=== PATIENT | male | born 1960 | race Two or more races ===

== ENCOUNTER 2018-12-07 07:21 | Emergency (ER) | payer MEDICAID, SELFPAY ==
[~2018-12-07] VITALS: Ht 180.3 cm; Wt 104.3 kg
[~2018-12-07 07:21] MED LIST: KALETRA 200-501 EAC1 ORAL
[2018-12-07] MEDS ORDERED: hiv med ORAL (07:29)
[2018-12-07 07:30] VITALS: BP 178/105
--- NOTE | 2018-12-07 07:30 | NUR ---
ED Nurse Note: ambulated in to ER de to abdominal pain x 1 year and wheezing x 2 weeks. Denies SOB and no labor breathing at the bedside. Per pt, he was seen by PCP about 6 months ago and no further follow up after. Denies bloody stool.
[2018-12-07] MEDS ORDERED: Albuterol ud Inhalation HHN ONE (07:45)
[2018-12-07] MEDS ORDERED: Ipratropium 0.02% Inh Soln 2.5ml UD HHN ONE (07:45)
--- NOTE | 2018-12-07 07:57 | NUR ---
ED Nurse Note: All meds given and pt is now receiving breathing treatment.
--- NOTE | 2018-12-07 08:17 | Emergency Room Report ---
History of Present Illness General Chief Complaint: General Complaint Source: Patient, Medical Record Present Illness HPI 58-year-old male presents ED for evaluation. Patient is complaining of wheezing for the last 2 weeks. Denies cough. Denies fevers or chills. Denies history of asthma but states he's been diagnosed with bronchitis in the past. Notes history of HIVstates he is compliant with his medications. Patient denies sick contacts or recent travel. Also complaining of abdominal pain. States that he has a hernia for the last 5 years. States he's having pain whenever he eats for the past year. Pain is generalized. Denies any pain at this time. No other aggravating relieving factors. Denies any other associated symptoms Allergies: Coded Allergies: No Known Allergies (Unverified , 05/31/14) Patient History Past Medical History: none Past Surgical History: none Pertinent Family History: none Social History: Denies: smoking, alcohol use, drug use Immunizations: UTD Reviewed Nursing Documentation: PMH: Agreed; PSxH: Agreed Nursing Documentation-PMH Past Medical History: No History, Except For Hx Cardiac Problems: No - HIV Hx Hypertension: No Hx Pacemaker: No Hx Asthma: No Hx COPD: No Hx Diabetes: No Hx Cancer: No Hx Gastrointestinal Problems: No Hx Dialysis: No Hx Neurological Problems: No Hx Cerebrovascular Accident: No Hx Seizures: No Review of Systems All Other Systems: negative except mentioned in HPI Physical Exam Vital Signs Date Time Temp Pulse Resp B/P (MAP) Pulse Ox O2 Delivery O2 Flow Rate FiO2 12/07/18 07:25 98.4 82 18 178/105 97 Room Air 12/07/18 07:54 21 Sp02 EP Interpretation: reviewed, normal General Appearance: no apparent distress, alert, GCS 15, non-toxic Head: normocephalic, atraumatic Eyes: bilateral eye normal inspection, bilateral eye PERRL ENT: hearing grossly normal, normal pharynx, no angioedema, normal voice Neck: full range of motion, supple/symm/no masses Respiratory: chest non-tender, normal breath sounds, speaking full sentences, wheezing Cardiovascular #1: regular rate, rhythm, no edema Cardiovascular #2: 2+ carotid (R), 2+ carotid (L), 2+ radial (R), 2+ radial (L) , 2+ dorsalis pedis (R), 2+ dorsalis pedis (L) Gastrointestinal: normal bowel sounds, non tender, soft, non-distended, no guarding, no rebound, hernia - umbilical hernia - reducible, not incarcerated Rectal: deferred Genitourinary: normal inspection, no CVA tenderness Musculoskeletal: back normal, gait/station normal, normal range of motion, non- tender Neurologic: alert, oriented x3, responsive, motor strength/tone normal, sensory intact, speech normal Psychiatric: judgement/insight normal, memory normal, mood/affect normal, no suicidal/homicidal ideation Reflexes: 3+ bicep (R), 3+ bicep (L), 3+ tricep (R), 3+ tricep (L), 3+ knee (R) , 3+ knee (L) Skin: normal color, no rash, warm/dry, well hydrated Lymphatic: no adenopathy Medical Decision Making Diagnostic Impression: Primary Impression: Bronchitis Additional Impression: Hernia ER Course Hospital Course 58-year-old male presents to ED complaining of wheezing Differential diagnoses include: URI, bronchitis, asthma/COPD, pneumonia Clinical course Patient placed on stretcher. After initial history and physical I ordered prednisone and nebulizer treatment. Upon reassessment patient states cough and symptoms have improved. Findings consistent with bronchitis. Discussed findings with patient. Patient has an umbilical hernia without evidence of incarceration or obstruction. Has been there for 5 years. No indication for CT imaging at this time. We'll provide referral to surgery for outpatient evaluation Patient is describing abdominal pain with eating. Consideration for ulcer. Patient has no pain at this time. Abdomen is soft with no guarding or rebound. We'll discharge with Zantac. We'll also provide GI referrals for outpatient evaluation, possible endoscopy Safe for discharge with close outpatient follow-up Diagnosis - bronchitis, hernia Stable and discharged home with prescriptions for Rx zantac, albuterol. Instructed to followup with PMD. Return to ED if symptoms recur or worsen Last Vital Signs Date Time Temp Pulse Resp B/P (MAP) Pulse Ox O2 Delivery O2 Flow Rate FiO2 12/07/18 07:58 68 16 Room Air 21 12/07/18 07:54 99 12/07/18 07:30 98.4 178/105 Status: improved Disposition: HOME, SELF-CARE Condition: Stable Scripts Ranitidine Hcl* (ZANTAC*) 150 Mg Tablet 150 MG ORAL TWICE A DAY, #30 TAB Prov: Sarmad Smalls MD 12/07/18 Albuterol Sulfate* (ALBUTEROL SULFATE MDI*) 8.5 Gm Hfa.aer.ad 2 PUFF INH Q6H, #1 EA 0 Refills Prov: Sarmad Smalls MD 12/07/18 Referrals: NON PHYSICIAN (PCP) Sarmad Smalls MD Dec 07, 2018 08:17
[2018-12-07] MEDS ORDERED: ALBUTEROL SULF8.5 GM INH (08:35)
[2018-12-07] MEDS ORDERED: RANITIDINE HCL150 MG ORAL (08:35)
[2018-12-07 08:41] VITALS: BP 172/99
--- NOTE | 2018-12-07 08:41 | NUR ---
ER DISCHARGE NOTE: Patient is cleared to be discharged per ERMD, pt is aox4, on room air, with stable vital signs. pt was given dc and prescription instructions, pt was able to verbalize understanding, pt id band removed without complications. pt is able to ambulate with steady gait. pt took all belongings.
== END 2018-12-07 08:42 | disposition home or self-care (01) ==
LOC: EMR 07:50
DX: J40 Bronchitis, not specified as acute or chronic (principal); K42.9 Umbilical hernia without obstruction or gangrene
CPT/HCPCS: 94640; 94664; 99284; J7512

== ENCOUNTER 2019-01-15 10:01 | Emergency (ER) | payer MEDICAID ==
[~2019-01-15] VITALS: Ht 180.3 cm; Wt 104.3 kg
[~2019-01-15 10:01] MED LIST changes: +ALBUTEROL SULF8.5 GM INH; +RANITIDINE HCL150 MG ORAL; +hiv med ORAL
[2019-01-15 10:19] VITALS: BP 153/99
[2019-01-15] MEDS ORDERED: Ipratropium 0.02% Inh Soln 2.5ml UD HHN ONE (10:30)
[2019-01-15] MEDS ORDERED: Solu-MEDROL 125mg Inj IVP ONE (10:30)
[2019-01-15] MEDS ORDERED: Albuterol ud Inhalation HHN ONE (10:30)
--- NOTE | 2019-01-15 10:42 | Emergency Room Report ---
History of Present Illness General Chief Complaint: Upper Respiratory Illness Source: Patient Present Illness HPI Patient presents with wheezing. It's worse at night. He was seen in November and got a prescription for an inhaler. 3 weeks before that he was seen in urgent care and received antibiotics. He denies any fevers at this time or productive cough. He feels that the inhaler didn't help him at all. Denies any chest pain per se. There is no nausea, vomiting or diarrhea. The patient does not have a history of asthma. He occasionally is around people who smoke marijuana but he does not smoke himself. No calf pain or edema. 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 He usually isn't exposed to the fine particles. Patient is HIV positive and states she is stable on antivirals. He states it has been a while since he seen his private doctor. Allergies: Coded Allergies: No Known Allergies (Unverified , 05/31/14) Patient History Past Medical History: see triage record Social History: Denies: smoking Social History Narrative laughlin Reviewed Nursing Documentation: PMH: Agreed; PSxH: Agreed Nursing Documentation-PMH Past Medical History: No History, Except For Hx Cardiac Problems: No - HIV Hx Hypertension: No Hx Pacemaker: No Hx Asthma: No Hx COPD: No Hx Diabetes: No Hx Cancer: No Hx Gastrointestinal Problems: No Hx Dialysis: No Hx Neurological Problems: No Hx Cerebrovascular Accident: No Hx Seizures: No Review of Systems All Other Systems: negative except mentioned in HPI Physical Exam Vital Signs Date Time Temp Pulse Resp B/P (MAP) Pulse Ox O2 Delivery O2 Flow Rate FiO2 01/15/19 10:09 98.2 87 18 153/99 98 Room Air Sp02 EP Interpretation: reviewed, normal General Appearance: well appearing, no apparent distress, GCS 15 Head: normocephalic Eyes: bilateral eye normal inspection, bilateral eye PERRL, bilateral eye EOMI , bilateral eye other - Pterygium ENT: moist mucus membranes Neck: supple Respiratory: wheezing, expiration Cardiovascular #1: regular rate, rhythm, no edema Cardiovascular #2: 2+ radial (R) Gastrointestinal: normal inspection, normal bowel sounds, non tender, no mass, non-distended Musculoskeletal: back normal, gait/station normal, normal range of motion, no calf tenderness, Enoch's Sign negative Neurologic: alert, oriented x3 Skin: normal inspection, warm/dry Medical Decision Making Diagnostic Impression: Primary Impression: Bronchospasm ER Course Patient presents with wheezing for several months of proceeded by a possible upper respiratory infection. Differential includes asthma, allergies, bronchitis, acute coronary syndrome amongst others. The patient will be evaluated with EKG, chest x-ray and labs. The patient will be treated with slight Medrol and breathing treatments. EKG with normal sinus rhythm left axis deviation and a right bundle-branch block voltage criteria for LVH. Chest x-ray no infiltrates. Labs with low white count otherwise unremarkable. Patient is improved with breathing treatments although he says it is not much. Discussed treatment plan with patient. Also discussed that antibiotics are not indicated at this time. I stressed the importance of following up with his own private doctor. Patient stable for outpatient observation and treatment. Laboratory Tests Test 01/15/19 10:23 01/15/19 10:40 White Blood Count 5.2 K/UL (4.8-10.8) Red Blood Count 4.22 M/UL (4.70-6.10) L Hemoglobin 14.2 G/DL (14.2-18.0) Hematocrit 41.9 % (42.0-52.0) L Mean Corpuscular Volume 99 FL (80-99) Mean Corpuscular Hemoglobin 33.5 PG (27.0-31.0) H Mean Corpuscular Hemoglobin Concent 33.8 G/DL (32.0-36.0) Red Cell Distribution Width 13.5 % (11.6-14.8) Platelet Count 233 K/UL (150-450) Mean Platelet Volume 6.2 FL (6.5-10.1) L Neutrophils (%) (Auto) 36.3 % (45.0-75.0) L Lymphocytes (%) (Auto) 50.3 % (20.0-45.0) H Monocytes (%) (Auto) 10.8 % (1.0-10.0) H Eosinophils (%) (Auto) 1.6 % (0.0-3.0) Basophils (%) (Auto) 1.0 % (0.0-2.0) Sodium Level 142 MMOL/L (136-145) Potassium Level 3.9 MMOL/L (3.5-5.1) Chloride Level 106 MMOL/L (98-107) Carbon Dioxide Level 29 MMOL/L (21-32) Anion Gap 7 mmol/L (5-15) Blood Urea Nitrogen 16 mg/dL (7-18) Creatinine 1.3 MG/DL (0.55-1.30) Estimate Glomerular Filtration Rate 56.9 mL/min (>60) Glucose Level 94 MG/DL (74-106) Calcium Level 9.8 MG/DL (8.5-10.1) Total Bilirubin 0.2 MG/DL (0.2-1.0) Aspartate Amino Transferase (AST) 31 U/L (15-37) Alanine Aminotransferase (ALT) 66 U/L (12-78) Alkaline Phosphatase 73 U/L (46-116) Troponin I 0.020 ng/mL (0.000-0.056) Pro-B-Type Natriuretic Peptide 68 pg/mL (0-125) Total Protein 8.4 G/DL (6.4-8.2) H Albumin 3.8 G/DL (3.4-5.0) Globulin 4.6 g/dL Albumin/Globulin Ratio 0.8 (1.0-2.7) L Urine Color Yellow Urine Appearance Clear Urine pH 6 (4.5-8.0) Urine Specific Amo 1.010 (1.005-1.035) Urine Protein 2+ (NEGATIVE) H Urine Glucose (UA) Negative (NEGATIVE) Urine Ketones Negative (NEGATIVE) Urine Blood Negative (NEGATIVE) Urine Nitrite Negative (NEGATIVE) Urine Bilirubin Negative (NEGATIVE) Urine Urobilinogen Normal MG/DL (0.0-1.0) Urine Leukocyte Esterase 1+ (NEGATIVE) H Urine RBC 2-4 /HPF (0 - 0) H Urine WBC 0-2 /HPF (0 - 0) Urine Squamous Epithelial Cells Few /LPF (NONE/OCC) Urine Amorphous Sediment Few /LPF (NONE) H Urine Bacteria Few /HPF (NONE) EKG Diagnostic Results Rate: normal Rhythm: NSR ST Segments: no acute changes Rhythm Strip Diag. Results EP Interpretation: yes Rhythm: NSR, no PVC's, no ectopy Chest X-Ray Diagnostic Results Chest X-Ray Diagnostic Results : Chest X-Ray Ordered: Yes # of Views/Limited/Complete: 1 View Indication: Other EP Interpretation: Yes Interpretation: no consolidation, no effusion, no pneumothorax Impression: No acute disease Electronically Signed by: Electronically signed by Emmett Hung MD Last Vital Signs Date Time Temp Pulse Resp B/P (MAP) Pulse Ox O2 Delivery O2 Flow Rate FiO2 01/15/19 12:18 98.1 82 20 147/115 98 Room Air 100 Status: improved Disposition: HOME, SELF-CARE Condition: Improved Scripts Inhaler, Assist Devices (AEROCHAMBER) 1 Each Spacer EACH MC, #1 Prov: Emmett Hung MD 01/15/19 Guaifenesin/Codeine Phos* (ROBITUSSIN AC*) 118 Ml Liquid 5 ML ORAL Q6H PRN for For Cough, #90 ML 0 Refills Prov: Emmett Hung MD 01/15/19 Albuterol Sulfate* (ALBUTEROL SULFATE MDI*) 8.5 Gm Hfa.aer.ad 2 PUFF INH Q6H PRN for wheezing, #1 EA 0 Refills Prov: Emmett Hung MD 01/15/19 Prednisone* (PREDNISONE*) 10 Mg Tablet 10 MG ORAL DAILY, #21 TAB 0 Refills 4 po QD X 2, 3 po QD X 2, 2 po QD X 2, 1 po QD X 4 Prov: Emmett Hung MD 01/15/19 Emmett Hung MD Jan 15, 2019 10:42
[2019-01-15 10:47] LABS: EOSINOPHILS % (AUTO) 1.6 % (0.0-3.0); HEMATOCRIT 41.9 % (42.0-52.0); HEMOGLOBIN 14.2 G/DL (14.2-18.0); LYMPHOCYTES % (AUTO) 50.3 % (20.0-45.0); MEAN CORPUSCULAR VOLUME 99 FL (80-99); MONOCYTES % (AUTO) 10.8 % (1.0-10.0); NEUTROPHILS % (AUTO) 36.3 % (45.0-75.0); PLATELET COUNT 233 K/UL (150-450); RED BLOOD COUNT 4.22 M/UL (4.70-6.10); RED CELL DISTRIBUTION WIDTH 13.5 % (11.6-14.8); WHITE BLOOD COUNT 5.2 K/UL (4.8-10.8)
[2019-01-15 10:54] LABS: ANION GAP 7 mmol/L (5-15); BLOOD UREA NITROGEN 16 mg/dL (7-18); CALCIUM 9.8 MG/DL (8.5-10.1); CARBON DIOXIDE 29 MMOL/L (21-32); CHLORIDE 106 MMOL/L (98-107); CREATININE 1.3 MG/DL (0.55-1.30); POTASSIUM 3.9 MMOL/L (3.5-5.1); SODIUM 142 MMOL/L (136-145)
[2019-01-15 10:55] LABS: APPEARANCE,URINE CLEAR; BILIRUBIN, URINE NEGATIVE (NEGATIVE); GLUCOSE, URINE (UA) NEGATIVE (NEGATIVE); KETONES,URINE NEGATIVE (NEGATIVE); LEUKOCYTE ESTERASE ,URINE 1+ (NEGATIVE); NITRITE,URINE NEGATIVE (NEGATIVE); PH,URINE 6 (4.5-8.0); PROTEIN,URINE 2+ (NEGATIVE); UROBILINOGEN,URINE NORMAL MG/DL (0.0-1.0)
[2019-01-15 10:57] LABS: COLOR,URINE YELLOW
[2019-01-15 11:07] LABS: ALANINE AMINOTRANSFERASE 66 U/L (12-78); ALBUMIN 3.8 G/DL (3.4-5.0); ALBUMIN/GLOBULIN RATIO 0.8 (1.0-2.7); ALKALINE PHOSPHATASE 73 U/L (46-116); ASPARTATE AMINO TRANSFERASE 31 U/L (15-37); BILIRUBIN,TOTAL 0.2 MG/DL (0.2-1.0)
--- NOTE | 2019-01-15 11:08 | Diagnostic Imaging Report ---
Indication: Shortness of breath Technique: One view of the chest Comparison: 05/31/2014 Findings: Lungs and pleural spaces are clear. The heart is upper limits normal in size. No significant interim change Impression: No acute process
[2019-01-15] MEDS ORDERED: AEROCHAMBER1 EACH MC ×2 (11:58)
[2019-01-15] MEDS ORDERED: PREDNISONE10 MG ORAL ×2 (11:58)
[2019-01-15] MEDS ORDERED: ALBUTEROL SULF8.5 GM INH ×2 (11:58)
[2019-01-15] MEDS ORDERED: GUAIFENESIN-CO118 M1 ORAL (11:58)
[2019-01-15 12:18] VITALS: BP 147/115
--- NOTE | 2019-01-19 15:54 | Cardiology Report ---
APPROVED REPORT EKG Measurement Heart [id number] Normal sinus rhythm Left axis deviation Right bundle branch block Voltage criteria for left ventricular hypertrophy Abnormal ECG
== END 2019-01-15 12:19 | disposition home or self-care (01) ==
LOC: EMR 10:34
DX: J98.01 Acute bronchospasm (principal); B20 Human immunodeficiency virus [HIV] disease; H11.003 Unspecified pterygium of eye, bilateral; I45.10 Unspecified right bundle-branch block
CPT/HCPCS: 36415; 71045; 80053; 81003; 83880; 84484; 85025; 93005; 94640; 94664; 96374; 99284; J2930

== ENCOUNTER 2019-06-22 09:15 | Day surgery (SDC) | payer MEDICAID ==
[2019-06-22] VITALS (8 sets, daily range): BP systolic 137–165; BP diastolic 88–121
[~2019-06-22] VITALS: Ht 180.3 cm; Wt 104.3 kg
[~2019-06-22 09:15] MED LIST changes: +AEROCHAMBER1 EACH MC; +GUAIFENESIN-CO118 M1 ORAL; +LR 1000ml 1,000 ML IVLG SCH; +PREDNISONE10 MG ORAL
--- NOTE | 2019-06-22 10:40 | Pre-Procedure Note/Attestation ---
Pre-Procedure Note/Attestation Complete Prior to Procedure Planned Procedure: not applicable Procedure Narrative: colonoscopy Indications for Procedure Pre-Operative Diagnosis: screening Attestation I attest that I discussed the nature of the procedure; its benefits; risks and complications; and alternatives (and the risks and benefits of such alternatives ), prior to the procedure, with the patient (or the patient's legal customer contact representative). I attest that, if there was a reasonable possibility of needing a blood transfusion, the patient (or the patient's legal customer contact representative) was given the [facility] standardized written summary, pursuant to the Jethro Liscomb Blood Safety Act ([place] Health and Safety Code # 1645, as amended). I attest that I re-evaluated the patient just prior to the surgery and that there has been no change in the patient's H&P, except as documented below: Cornelio Dyer MD Jun 22, 2019 10:40
--- NOTE | 2019-06-22 10:41 | Short Stay Surgery H&P ---
History of Present Illness History of Present Illness Chief Complaint screening HPI eLnin Le is a 58 year old male who was admitted on for Abdominal Pain,Bloating Patient History Allergies: Coded Allergies: No Known Allergies (Unverified , 06/22/19) PAST MEDICAL HISTORY: (1) HIV (human immunodeficiency virus infection) Medication History Scheduled Albuterol Sulfate* (Albuterol Sulfate Mdi*), 2 PUFF INH Q6H Lopinavir/Ritonavir 200-50MG* (Kaletra 200-50MG*), 4 TAB ORAL DAILY, (Reported) Prednisone* (Prednisone*), 10 MG ORAL DAILY Ranitidine Hcl* (Zantac*), 150 MG ORAL TWICE A DAY [hiv med], ORAL BID, (Reported) Scheduled PRN Albuterol Sulfate* (Albuterol Sulfate Mdi*), 2 PUFF INH Q6H PRN for wheezing Guaifenesin/Codeine Phos* (Robitussin Ac*), 5 ML ORAL Q6H PRN for For Cough Durable Medical Equipment Inhaler, Assist Devices (Aerochamber), EACH , (DME) Review of Systems Cardiovascular: Reports: no symptoms Skeletal: Reports: no symptoms Genitourinary: Reports: no symptoms Neurologic: Reports: no symptoms Endocrine: Reports: no symptoms Hematologic: Reports: no symptoms Physical Exam Skin: normal HENT: normal Heart: normal Lungs: normal Abdomen: normal Extremities: normal Plan Plan of Care colonoscopy Attestation Are the patient's medical conditions optimized for surgery? Attestation Response: yes Cornelio Dyer MD Jun 22, 2019 10:41
--- NOTE | 2019-06-22 10:45 | Anethesia Preoperative Eval ---
Anesthesia Pre-op PMH/ROS General Date of Evaluation: Jun 22, 2019 Time of Evaluation: 10:52 Anesthesiologist: Mary Jo Sandoval ASA Score: ASA 2 Mallampati Score Class I : Soft palate, uvula, fauces, pillars visible Class II: Soft palate, uvula, fauces visible Class III: Soft palate, base of uvula visible Class IV: Only hard plate visible Mallampati Classification: Class III Surgeon: Manisha Diagnosis: abdominal pain Surgical Procedure: Colonoscopy Anesthesia History: none Family History: no anesthesia problems Allergies: Coded Allergies: No Known Allergies (Unverified , 06/22/19) Medications: see eMAR Patient NPO?: Yes NPO Date: Jun 22, 2019 NPO Time: 00:00 Past Medical History Cardiovascular: Denies: HTN, CAD, SC, valve dz, arrhythmia, other Pulmonary: Reports: asthma; Denies: COPD, ROMAINE, other Gastrointestinal/Genitourinary: Reports: other - abdominal pain/bloating; Denies: GERD, CRI, ESRD Neurologic/Psychiatric: Denies: dementia, CVA, depression/anxiety, TIA, other Endocrine: Denies: DM, hypothyroidism, steroids, other HEENT: Denies: cataract (L), cataract (R), glaucoma, KAIBAB (L), KAIBAB (R), other Hematology/Immune: Reports: other - HIV; Denies: anemia, DVT, bleeding disorder Musculoskeletal/Integumentary: Denies: OA, RA, DJD, DDD, edema, other Other: obesity PMH Narrative: as noted above PSxH Narrative: see H & P Anesthesia Pre-op Phys. Exam Physician Exam Last 24 Hour Vital Signs Date Time Temp Pulse Resp B/P (MAP) Pulse Ox O2 Delivery O2 Flow Rate FiO2 06/22/19 11:00 Room Air 06/22/19 10:57 97.0 82 20 159/98 99 Room Air Constitutional: NAD Neurologic: other - alert & oriented Cardiovascular: RRR Respiratory: CTA Gastrointestinal: S/NT/ND Airway Exam Mallampati Score: Class III MO: full Neck: thick neck TMD: 3 FB ROM: full Teeth: intact Dentures: no upper, no lower Anesthesia Pre-op A/P Studies Pre-op Studies: EKG - NSR, left axis deviation, RBBB, possible LVH Risk Assessment & Plan Assessment: ASA 2, ok to proceed Plan: MAC Status Change Before Surgery: Mary Jo Ramos CRNA Jun 22, 2019 10:45
[2019-06-22] MEDS ORDERED: Propofol 200mg/20ml IV ONE (11:00)
[2019-06-22] MEDS ORDERED: LR 1000ml ONE (11:00)
[2019-06-22] MEDS ORDERED: Lidocaine 1% MPF 10mg/ml 5ml ONE (11:00)
[2019-06-22] MEDS ORDERED: [UNRECOGNIZED DRUG - OTHER] PO (11:04)
[2019-06-22] MEDS ORDERED: [UNRECOGNIZED DRUG - OTHER] PO (11:04)
--- NOTE | 2019-06-22 11:32 | Endoscopy Procedure Note ---
Endoscopy Procedure Note General Indication for Procedure: screening Procedures Performed: colonoscopy Operative Findings/Diagnosis: 2 polyps Specimen: yes Pt Tolerated Procedure Well: Yes Estimated Blood Loss: none Anesthesia Anesthesiologist: priyanka Anesthesia: MAC Inserted Devices Implant(s) used?: No Quality Quality of Bowel Preparation: Fair Did scope reach the cecum?: Yes Was there any complications?: No GI Core Measures 50 yrs or older w/o bx or poly: No 10yrs. F/U recommended: Yes If not recommended, why?: Above average risk 18 years or older w/prev. colo: No Cornelio Dyer MD Jun 22, 2019 11:32
--- NOTE | 2019-06-22 11:47 | Immediate Post-Op Evaluation ---
Immediate Post-Op Evalulation Immediate Post-Op Evalulation Procedure: Colonoscopy with biopsies, polypectomy Date of Evaluation: Jun 22, 2019 Time of Evaluation: 11:35 IV Fluids: LR 300 ml Blood Pressure Systolic: 159 Blood Pressure Diastolic: 112 Pulse Rate: 85 Respiratory Rate: 21 O2 Sat by Pulse Oximetry: 98 Temperature (Fahrenheit): 98.2 Pain Score (1-10): 0 Nausea: No Vomiting: No Complications none Patient Status: awake, patent Hydration Status: adequate Given Within 1 Hr of Incision: Mary Jo Ramos CRNA Jun 22, 2019 11:47
[2019-06-22] MEDS ORDERED: Succinylcholine 20mg/ml 10ml vial ONE (11:50)
--- NOTE | 2019-06-22 12:21 | 48 Hour Post Anesthesia Eval ---
Post Anesthesia Evaluation Procedure: Colonoscopy with biopsies, polypectomy Date of Evaluation: Jun 22, 2019 Time of Evaluation: 12:20 Blood Pressure Systolic: 151 0: 102 Pulse Rate: 81 Respiratory Rate: 18 Temperature (Fahrenheit): 98 O2 Sat by Pulse Oximetry: 99 Airway: patent Nausea: No Vomiting: No Pain Intensity: 0 Hydration Status: adequate Cardiopulmonary Status: stable Mental Status/LOC: patient returned to baseline Follow-up Care/Observations: per GI Post-Anesthesia Complications: none Follow-up care needed: N/A Mary Jo Sandoval CRNA Jun 22, 2019 12:21
--- NOTE | 2019-06-22 16:30 | Procedure Note ---
DATE OF PROCEDURE: 06/22/2019 SURGEON: Cornelio Dyer M.D. PROCEDURE: Colonoscopy with snare polypectomy and biopsy. ANESTHESIA: Per Mary Jo LEONE. INSTRUMENT: Olympus colonoscope. INDICATION: Screening colonoscopy. REASON FOR PROCEDURE: The procedure, risks, benefits, and possible consequences, including hemorrhage, aspiration, perforation and infection, and alternative treatments, were explained to the patient/legal guardian by Dr. Cornelio Dyer and the patient/legal guardian understood and accepted these risks. PROCEDURE IN DETAIL: After informed consent was obtained, the patient was adequately sedated, first rectal exam was performed, which was positive for internal hemorrhoids. Then, the scope was advanced from the rectum into the cecum documented by appendix orifice, ileocecal valve, and right upper quadrant palpation. Quality of prep overall was fair. The patient had one sessile polyp in the ascending colon, measured roughly about 6 mm, removed with hot snare polypectomy technique. There was another diminutive polyp in transverse colon, removed with the cold biopsy forceps technique. The patient had some stool throughout the transverse colon. I would say about 20% of the colonic mucosa was not examined due to this prep. There was no further polyp seen. Retroflexion of rectum showed evidence of internal hemorrhoids. SUMMARY OF FINDINGS: 1. Two colonic polyps removed, see above for details. 2. Fair colonic prep. 3. Internal hemorrhoids. RECOMMENDATIONS: Follow up biopsy results and treat accordingly. Given this prep. Recommend repeat colonoscopy in 2 years. Cornelio Dyer M.D. DR: COLIN JOB#: [id number] CC:
== END 2019-06-22 13:20 | disposition home or self-care (01) ==
LOC: GAS 09:15
DX: Z12.11 Encounter for screening for malignant neoplasm of colon (principal); K63.5 Polyp of colon; K64.8 Other hemorrhoids; B20 Human immunodeficiency virus [HIV] disease; Z79.899 Other long term (current) drug therapy; E66.9 Obesity, unspecified; Z68.32 Body mass index [BMI] 32.0-32.9, adult; D12.2 Benign neoplasm of ascending colon
CPT/HCPCS: 45380; 45385; 93005; J0330; J2704; Z7512; 94003; 94150

== ENCOUNTER → 2019-11-16 | Outpatient (CLI) | payer MEDICAID, SELFPAY ==
[~2019-11-16] MED LIST changes: -LR 1000ml 1,000 ML IVLG SCH; +PREZCOBIX 8001 EACH PO; +PROAIR HFA8.5 GM INH; +[UNRECOGNIZED DRUG - OTHER] PO; +[UNRECOGNIZED DRUG - OTHER] PO
--- NOTE | 2019-11-16 16:20 | Diagnostic Imaging Report ---
Clinical Indication: Abdominal pain and abdominal distention Technique: Patient given oral contrast. IV administration nonionic contrast. Venous phase spiral acquisition obtained through the abdomen and pelvis. Multiplanar reconstructions were generated. Total dose length product 585 mGycm. CTDIvol(s) 10 mGy. Dose reduction achieved using automated exposure control Comparison: none Findings: The appendix is normal. There is no evidence of diverticulosis or diverticulitis. There is equivocal mild wall thickening of the descending and sigmoid colon. This may be an artifact of under distention. No small bowel distention or small bowel wall thickening. Ingested contrast has traversed the entirety of the small bowel, reaches the distal colon. No free or loculated intraperitoneal gas or fluid is evident. The distal esophagus, stomach, duodenum are unremarkable. There is a small left inguinal hernia that contains only fat. The liver is diffusely hypoattenuating, consistent with fatty change. The gallbladder, bile ducts, pancreas, spleen, adrenals, kidneys are unremarkable. No retroperitoneal or mesenteric mass or adenopathy. No pelvic mass or adenopathy. The included lung bases are clear. The bones demonstrate mild degenerative lumbar facet arthrosis. Impression: Equivocal mild wall thickening of the distal colon, suspect artifact of under distention but could represent colitis changes No acute process otherwise Fatty liver Incidental finding mild lumbar facet arthrosis The CT scanner at [facility] is accredited by the [employer] and the scans are performed using protocols designed to limit radiation exposure to as low as reasonably achievable to attain images of sufficient resolution adequate for diagnostic evaluation.
== END | disposition home or self-care (01) ==
LOC: CAT 10:06
DX: R10.9 Unspecified abdominal pain (principal); R14.0 Abdominal distension (gaseous); K76.0 Fatty (change of) liver, not elsewhere classified; K40.90 Unilateral inguinal hernia, without obstruction or gangrene, not specified as recurrent; M47.9 Spondylosis, unspecified
CPT/HCPCS: 74177; Q9967

== ENCOUNTER 2019-11-20 10:34 | Outpatient (CLI) | payer MEDICAID, OTHER ==
[~2019-11-20 10:34] MED LIST changes: -PREZCOBIX 8001 EACH PO; -PROAIR HFA8.5 GM INH
--- NOTE | 2019-11-20 10:45 | NUR ---
PT REPORTED HE WAS SEEN BY PCP, DR KELLY LAST MONTH AND BP WAS NORMAL RANGE Addendum: 11/20/19 at 1416 by DAIJA LOPEZ Amended: Links added.
[2019-11-20] MEDS ORDERED: PROAIR HFA8.5 GM INH (14:14)
[2019-11-20] MEDS ORDERED: PREZCOBIX 8001 EACH PO (14:14)
[2019-11-20] MEDS ORDERED: KALETRA 200-501 EAC1 ORAL (14:14)
[2019-11-20 14:15] VITALS: BP 145/100
--- NOTE | 2019-11-21 13:43 | General Progress Note ---
Assessment/Plan Assessment/Plan: s/p colonoscopy: SUMMARY OF FINDINGS: 1. Two colonic polyps removed, see above for details. 2. Fair colonic prep. 3. Internal hemorrhoids trial of bentyl and elavil 25 mg repeat colon in one year given poor prep Subjective ROS Limited/Unobtainable: Yes Allergies: Coded Allergies: No Known Allergies (Unverified , 06/22/19) Objective Last 24 Hour Vital Signs Date Time Temp Pulse Resp B/P (MAP) Pulse Ox O2 Delivery O2 Flow Rate FiO2 11/20/19 14:15 98.6 82 18 145/100 (115) 99 General Appearance: alert EENT: normal ENT inspection Neck: supple Cardiovascular: normal rate Respiratory/Chest: lungs clear Abdomen: normal bowel sounds, non tender, soft Extremities: non-tender Cornelio Dyer MD Nov 21, 2019 13:43
== END 2019-11-20 12:34 | disposition home or self-care (01) ==
LOC: PAN 10:34
DX: K63.5 Polyp of colon (principal); K64.8 Other hemorrhoids
CPT/HCPCS: 99212